=== PATIENT | male | born 1955 | race Hispanic/Latino ===

== ENCOUNTER 2017-11-08 18:18 | Emergency (ER) | payer BC ==
[~2017-11-08] VITALS: Ht 162.6 cm; Wt 59.4 kg
[2017-11-08] MEDS ORDERED: ATENOLOL50 MG (18:54)
== END 2017-11-08 18:55 | disposition home or self-care (01) ==
LOC: FSED 18:18
DX: B02.9 Zoster without complications (principal)
CPT/HCPCS: 99282

== ENCOUNTER 2022-09-02 13:31 | Emergency (ER) | payer BC, OTHER ==
[~2022-09-02] VITALS: Ht 162.6 cm; Wt 59.0 kg
[~2022-09-02 13:31] MED LIST: ATENOLOL50 MG
== END 2022-09-02 14:18 | disposition home or self-care (01) ==
LOC: MERGE 13:36 → FSED 13:36
DX: N63.10 Unspecified lump in the right breast, unspecified quadrant (principal); I10 Essential (primary) hypertension
CPT/HCPCS: 99282